=== PATIENT | male | born 1960 | race Caucasian/White ===

== ENCOUNTER 2017-03-17 18:12 | Emergency (ER) | payer SELFPAY ==
[2017-03-17] MEDS ORDERED: NORMAL SALINE 500 ML IV ONE (18:40)
--- NOTE | 2017-03-17 19:15 | ER Document Report ---
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 Patient hospitalization was also complicated by a hospital-acquired pneumonia. The patient spent the last 2 weeks prior to today' s visit in a rehabilitation center. He was just discharged from that center today and at home just prior to arrival apparently had an episode of syncope. The patient himself is unable to provide the details but family witness states that he was sitting in his chair when he appeared to "slumped forward" and then was minimally responsive for approximately 2-3 minutes. He then returned closer to normal. When EMS first arrived to the initial systolic blood pressure was 77. Family and EMS reports that his blood pressure and overall appearance improved after initiation of IV fluids. Family states that they were concerned that he was dehydrated today. At the time of my assessment the patient denies any acute complaints stating only that he feels thirsty. He denies any headache, neck pain, focal weakness or numbness or vomiting. No change in ostomy output. He denies any focal abdominal pain. No chest pain or shortness of breath. Initially there was some concern that the patient was hypoxemic although this appears to have been related to poor placement of the SPO2 reader. Patient denies anything improves or worsens the symptoms. He was encouraged by his primary doctor to come to the emergency department today. He has family are clear that they are hopeful that they can be discharged home today. - Related Data Allergies/Adverse Reactions: No Known Allergies Allergy (Unverified 03/17/17 18:58) Past Medical History - General Information source: Patient, Relative - Social History Smoking Status: Former Smoker Chew tobacco use (# tins/day): No Frequency of alcohol use: None Drug Abuse: None Lives with: Family Family History: Reviewed & Not Pertinent Past Surgical History: Reports: Hx Abdominal Surgery - colostomy Review of Systems - Review of Systems Notes: Constitutional: Negative for fever. HENT: Negative for sore throat. Eyes: Negative for visual changes. Cardiovascular: Negative for chest pain. Respiratory: Negative for shortness of breath. Gastrointestinal: Negative for abdominal pain, vomiting or diarrhea. Genitourinary: Negative for dysuria. Musculoskeletal: Negative for back pain. Skin: Negative for rash. Neurological: Negative for headaches, weakness or numbness. 10 point ROS negative except as marked above and in HPI. Physical Exam - Vital signs Vitals: Temp Pulse Resp BP Pulse Ox 97.8 F 71 14 103/71 98 03/17/17 18:26 03/17/17 18:26 03/17/17 18:26 03/17/17 18:26 03/17/17 18:26 Interpretation: Normal Notes: PHYSICAL EXAMINATION: GENERAL: Appears chronically ill but in no acute distress HEAD: Atraumatic, normocephalic. EYES: Pupils equal round and reactive to light, extraocular movements intact, sclera anicteric, conjunctiva are normal. ENT: nares patent, oropharynx clear without exudates. Moist mucous membranes. NECK: Normal range of motion, supple without lymphadenopathy LUNGS: Breath sounds clear to auscultation bilaterally and equal. No wheezes rales or rhonchi. HEART: Regular rate and rhythm without murmurs ABDOMEN: Soft, nontender, normoactive bowel sounds. No guarding, no rebound. No masses appreciated. Left lower quadrant ostomy present with appropriate stool output EXTREMITIES: Normal range of motion, no pitting or edema. No cyanosis. NEUROLOGICAL: No focal neurological deficits. Moves all extremities spontaneously and on command. PSYCH: Normal mood, normal affect. SKIN: Warm, Dry, normal turgor, no rashes or lesions noted. Course - Re-evaluation Re-evalutation: 03/17/17 19:14 Presentation appears most consistent with syncope in the setting of dehydration. Patient's vitals are normal at the time of my assessment and although he appears chronically ill he is in no acute distress. Family states that his appearance is his baseline at this time. His examination was without any focal findings beyond an ostomy with appropriate stool output and a recent surgical incision on his scalp. No evidence of infection to either surgical site. Patient does also appear clinically dehydrated. His systolic blood pressure, my assessment is 111. Will proceed with basic laboratories, IV fluids , EKG and reassessment. The patient had his supplemental oxygen turned off what was in the room and maintained a pulse oximetry reading of greater than 96 % for over 5 minutes I do not believe the initial hypoxemia readings were accurate as they appear to be related to movement of his finger on the device. 03/17/17 20:27 Patient normotensive, alert, without focal neurologic deficits at this time. He continues to deny syncope was during exertion. No preceding symptoms of palpitations, chest pain, or shortness of breath. Patient is asymptomatic at this time. EKG is without evidence of HCOM, right heart strain, ST changes to suggest ischemia, prolong QTc, delta wave, epsilon wave, or Brugada syndrome. Patient denies any symptoms to suggest an acute PE, FL, TAD, SAH, seizure, or acute GI bleed as the etiology of their syncope today. On exam, no murmurs to suggest critical aortic stenosis as possible etiology. Based on overall clinical history, exam findings, vitals, and patients appearance, I feel it is safe for patient to be discharged home at this time with close outpatient follow -up and strict return precautions. The patient now states he feels much improved , has tolerated oral intake and has remained hemodynamically within normal limits for the past 1.5 hours. His laboratories are unremarkable. I have reviewed at length with the family the importance of immediately return to the emergency department for any new symptoms. The family would like to be discharged home and the patient is in agreement stating he does not wish to be readmitted to the hospital I do not think this is required at this time. At this time will discharge with return precautions and follow-up recommendations. Verbal discharge instructions given a the bedside and opportunity for questions given. Medication warnings reviewed. Patient is in agreement with this plan and has verbalized understanding of return precautions and the need for primary care follow-up in the next 24-72 hours. - Vital Signs Vital signs: Temp Pulse Resp BP Pulse Ox 98.6 F 92 18 108/76 94 03/17/17 20:57 03/17/17 20:57 03/17/17 20:57 03/17/17 20:57 03/17/17 20:57 - Laboratory Result Diagrams: 03/17/17 18:39 03/17/17 18:39 Laboratory results interpreted by me: 03/17/17 18:39 WBC 14.6 H RBC 4.06 L Hgb 12.2 L Hct 37.7 L RDW 14.3 H Lymphocytes % (Manual) 9 L Abs Neuts (Manual) 12.1 H - EKG Interpretation by Me Additional EKG results interpreted by me: 03/17/17 20:[address] elevations or depressions. QTc 429. Discharge - Discharge Clinical Impression: Syncope Qualifiers: Syncope type: unspecified Qualified Code(s): R55 - Syncope and collapse Condition: Good Disposition: HOME, SELF-CARE Additional Instructions: You were seen today after an episode of passing out. Your EKG here is normal. At this time, we do not feel that your episode of passing out was from any life- threatening cause. Please drink plenty of fluids over the next several days. Return to emergency department if you have any further episodes of syncope, headache, weakness, numbness, chest pain, or shortness of breath. Please follow up closely with your primary care physician. Referrals: DESI RIGGS PA-C [Primary Care Provider] - Follow up as needed
[2017-03-17 19:57] LABS: HEMATOCRIT 37.7 % (37.9-51.0); HEMOGLOBIN 12.2 g/dL (13.5-17.0); HGB HCT DIFFERENCE -1.1; MEAN CORPUSCULAR HEMOGLOBIN 30.1 pg (27.0-33.4); MEAN CORPUSCULAR HGB CONC 32.4 g/dL (32.0-36.0); MEAN CORPUSCULAR VOLUME 93 fl (80-97); RED BLOOD COUNT 4.06 10^6/uL (4.35-5.55); RED CELL DISTRIBUTION WIDTH 14.3 % (11.5-14.0); WHITE BLOOD COUNT 14.6 10^3/uL (4.0-10.5)
[2017-03-17 19:59] LABS: ANION GAP 7 (5-19); BLOOD UREA NITROGEN 13 mg/dL (7-20); CALCIUM 8.6 mg/dL (8.4-10.2); CARBON DIOXIDE 28 mmol/L (22-30); CHLORIDE 104 mmol/L (98-107); CREATININE RESULT 0.79 mg/dL (0.52-1.25); GLUCOSE 96 mg/dL (75-110); SODIUM 139.2 mmol/L (137-145)
[2017-03-17 20:23] LABS: BAND NEUTROPHILS % (MANUAL) 5 % (3-5); BASOPHILS % (MANUAL) 0 % (0-2); EOSINOPHILS % (MANUAL) 3 % (0-6); LYMPHOCYTES % (MANUAL) 9 % (13-45); TOTAL CELLS COUNTED 100
[2017-03-17 20:25] LABS: ANISOCYTOSIS SLIGHT; TOXIC GRANULATION SLIGHT
[2017-03-17 20:33] VITALS: BP 108/76
--- NOTE | 2017-03-18 09:12 | EKG REPORT ---
SEVERITY:- NORMAL ECG - SINUS RHYTHM : Confirmed by: Ashley Nascimento MD 18-Mar-2017 09:11:46
== END 2017-03-17 20:57 | disposition home or self-care (01) ==
LOC: ER 18:12
DX: R55 Syncope and collapse (principal); Z87.891 Personal history of nicotine dependence
CPT/HCPCS: 93005; 99284; 36415; 85025; 80048; 93010; J7040

== ENCOUNTER → 2017-10-20 | Outpatient (CLI) | payer MEDICAID, OTHER ==
[2017-10-20 12:41] LABS: ABSOLUTE EOSINOPHILS # (AUTO) 0.3 10^3/uL (0.0-0.6); ABSOLUTE MONOCYTES (AUTO) 0.7 10^3/uL (0.1-1.4); ABSOLUTE NEUT (AUTO) 4.7 10^3/uL (1.7-8.2); BASOPHILS % (AUTO) 0.6 % (0-2); EOSINOPHILS % (AUTO) 4.5 % (0-6); HEMATOCRIT 43.9 % (37.9-51.0); HEMOGLOBIN 15.3 g/dL (13.5-17.0); LYMPHOCYTES % (AUTO) 14.4 % (13-45); MEAN CORPUSCULAR HEMOGLOBIN 33.4 pg (27.0-33.4); MEAN CORPUSCULAR HGB CONC 34.9 g/dL (32.0-36.0); MEAN CORPUSCULAR VOLUME 96 fl (80-97); MONOCYTES % (AUTO) 10.7 % (3-13); PLATELET COUNT 112 10^3/uL (150-450); RED BLOOD COUNT 4.59 10^6/uL (4.35-5.55); RED CELL DISTRIBUTION WIDTH 15.6 % (11.5-14.0); SEGMENTED NEUTROPHILS % (AUTO) 69.8 % (42-78); TOTAL CELLS COUNTED % (AUTO) 100 %; WHITE BLOOD COUNT 6.8 10^3/uL (4.0-10.5)
[2017-10-20 13:00] LABS: ALANINE AMINOTRANSFERASE 27 U/L (21-72); ALBUMIN 4.4 g/dL (3.5-5.0); ALKALINE PHOSPHATASE 52 U/L (38-126); ANION GAP 13 (5-19); ASPARTATE AMINO TRANSFERASE 18 U/L (17-59); BILIRUBIN,DIRECT 0.1 mg/dL (0.0-0.4); BILIRUBIN,TOTAL 0.5 mg/dL (0.2-1.3); BLOOD UREA NITROGEN 14 mg/dL (7-20); CALCIUM 10.1 mg/dL (8.4-10.2); CARBON DIOXIDE 28 mmol/L (22-30); CHLORIDE 107 mmol/L (98-107); GLUCOSE 88 mg/dL (75-110); POTASSIUM 4.2 mmol/L (3.6-5.0); SODIUM 147.5 mmol/L (137-145); TOTAL PROTEIN 7.3 g/dL (6.3-8.2)
== END ==
LOC: LAB 12:14
PROVIDERS: ATTEND Internal Medicine Hematology & Oncology
DX: C71.9 Malignant neoplasm of brain, unspecified (principal)
CPT/HCPCS: 36415; 80053; 85025

== ENCOUNTER → 2017-11-24 | Outpatient (CLI) | payer MEDICAID, OTHER ==
[2017-11-24 10:03] LABS: ABSOLUTE EOSINOPHILS # (AUTO) 0.1 10^3/uL (0.0-0.6); ABSOLUTE MONOCYTES (AUTO) 0.6 10^3/uL (0.1-1.4); BASOPHILS % (AUTO) 0.8 % (0-2); EOSINOPHILS % (AUTO) 3.1 % (0-6); HEMATOCRIT 41.7 % (37.9-51.0); HEMOGLOBIN 14.4 g/dL (13.5-17.0); LYMPHOCYTES % (AUTO) 21.3 % (13-45); MEAN CORPUSCULAR HEMOGLOBIN 34.3 pg (27.0-33.4); MEAN CORPUSCULAR HGB CONC 34.6 g/dL (32.0-36.0); MEAN CORPUSCULAR VOLUME 99 fl (80-97); MONOCYTES % (AUTO) 12.9 % (3-13); PLATELET COUNT 139 10^3/uL (150-450); RED BLOOD COUNT 4.21 10^6/uL (4.35-5.55); RED CELL DISTRIBUTION WIDTH 15.6 % (11.5-14.0); SEGMENTED NEUTROPHILS % (AUTO) 61.9 % (42-78); TOTAL CELLS COUNTED % (AUTO) 100 %; WHITE BLOOD COUNT 4.9 10^3/uL (4.0-10.5)
[2017-11-24 10:20] LABS: ALANINE AMINOTRANSFERASE 22 U/L (21-72); ALBUMIN 4.6 g/dL (3.5-5.0); ALKALINE PHOSPHATASE 46 U/L (38-126); ANION GAP 12 (5-19); ASPARTATE AMINO TRANSFERASE 20 U/L (17-59); BILIRUBIN,TOTAL 0.4 mg/dL (0.2-1.3); BLOOD UREA NITROGEN 15 mg/dL (7-20); CALCIUM 9.6 mg/dL (8.4-10.2); CARBON DIOXIDE 28 mmol/L (22-30); CHLORIDE 108 mmol/L (98-107); GLUCOSE 89 mg/dL (75-110); POTASSIUM 3.9 mmol/L (3.6-5.0); SODIUM 147.5 mmol/L (137-145); TOTAL PROTEIN 7.2 g/dL (6.3-8.2)
== END ==
LOC: LAB 09:40
PROVIDERS: ATTEND Internal Medicine Hematology & Oncology
DX: C71.9 Malignant neoplasm of brain, unspecified (principal)
CPT/HCPCS: 36415; 80053; 85025

== ENCOUNTER → 2017-12-16 | Outpatient (CLI) | payer MEDICAID, OTHER ==
[2017-12-16 11:18] LABS: ABSOLUTE EOSINOPHILS # (AUTO) 0.3 10^3/uL (0.0-0.6); ABSOLUTE LYMPHOCYTES (AUTO) 0.8 10^3/uL (0.5-4.7); ABSOLUTE MONOCYTES (AUTO) 0.6 10^3/uL (0.1-1.4); ABSOLUTE NEUT (AUTO) 3.7 10^3/uL (1.7-8.2); BASOPHILS % (AUTO) 0.8 % (0-2); EOSINOPHILS % (AUTO) 5.6 % (0-6); HEMATOCRIT 40.2 % (37.9-51.0); HEMOGLOBIN 13.7 g/dL (13.5-17.0); LYMPHOCYTES % (AUTO) 15.3 % (13-45); MEAN CORPUSCULAR HEMOGLOBIN 34.4 pg (27.0-33.4); MEAN CORPUSCULAR HGB CONC 34.1 g/dL (32.0-36.0); MEAN CORPUSCULAR VOLUME 101 fl (80-97); MONOCYTES % (AUTO) 10.6 % (3-13); PLATELET COUNT 198 10^3/uL (150-450); RED BLOOD COUNT 3.99 10^6/uL (4.35-5.55); RED CELL DISTRIBUTION WIDTH 15.4 % (11.5-14.0); SEGMENTED NEUTROPHILS % (AUTO) 67.7 % (42-78); TOTAL CELLS COUNTED % (AUTO) 100 %; WHITE BLOOD COUNT 5.4 10^3/uL (4.0-10.5)
[2017-12-16 11:39] LABS: ALANINE AMINOTRANSFERASE 38 U/L (21-72); ALBUMIN 4.1 g/dL (3.5-5.0); ALKALINE PHOSPHATASE 51 U/L (38-126); ANION GAP 10 (5-19); ASPARTATE AMINO TRANSFERASE 21 U/L (17-59); BILIRUBIN,DIRECT 0.1 mg/dL (0.0-0.4); BILIRUBIN,TOTAL 0.4 mg/dL (0.2-1.3); BLOOD UREA NITROGEN 15 mg/dL (7-20); CALCIUM 9.6 mg/dL (8.4-10.2); CARBON DIOXIDE 30 mmol/L (22-30); CHLORIDE 104 mmol/L (98-107); GLUCOSE 107 mg/dL (75-110); POTASSIUM 4.5 mmol/L (3.6-5.0); SODIUM 144.3 mmol/L (137-145); TOTAL PROTEIN 6.5 g/dL (6.3-8.2)
== END ==
LOC: LAB 11:01
PROVIDERS: ATTEND Internal Medicine Hematology & Oncology
DX: C71.9 Malignant neoplasm of brain, unspecified (principal)
CPT/HCPCS: 36415; 80053; 85025

== ENCOUNTER → 2018-05-10 | Outpatient (CLI) | payer MEDICAID ==
[2018-05-10 12:12] LABS: ABSOLUTE BASOPHILS # (AUTO) 0.1 10^3/uL (0.0-0.2); ABSOLUTE EOSINOPHILS # (AUTO) 0.4 10^3/uL (0.0-0.6); ABSOLUTE LYMPHOCYTES (AUTO) 0.9 10^3/uL (0.5-4.7); ABSOLUTE MONOCYTES (AUTO) 0.6 10^3/uL (0.1-1.4); ABSOLUTE NEUT (AUTO) 4.3 10^3/uL (1.7-8.2); BASOPHILS % (AUTO) 0.9 % (0-2); EOSINOPHILS % (AUTO) 6.9 % (0-6); HEMATOCRIT 42.4 % (37.9-51.0); HEMOGLOBIN 14.6 g/dL (13.5-17.0); LYMPHOCYTES % (AUTO) 14.9 % (13-45); MEAN CORPUSCULAR HEMOGLOBIN 32.7 pg (27.0-33.4); MEAN CORPUSCULAR HGB CONC 34.4 g/dL (32.0-36.0); MEAN CORPUSCULAR VOLUME 95 fl (80-97); PLATELET COUNT 199 10^3/uL (150-450); RED BLOOD COUNT 4.45 10^6/uL (4.35-5.55); RED CELL DISTRIBUTION WIDTH 13.8 % (11.5-14.0); SEGMENTED NEUTROPHILS % (AUTO) 68.3 % (42-78); TOTAL CELLS COUNTED % (AUTO) 100 %; WHITE BLOOD COUNT 6.3 10^3/uL (4.0-10.5)
[2018-05-10 12:30] LABS: ALANINE AMINOTRANSFERASE 30 U/L (21-72); ALBUMIN 4.2 g/dL (3.5-5.0); ALKALINE PHOSPHATASE 41 U/L (38-126); ANION GAP 9 (5-19); ASPARTATE AMINO TRANSFERASE 15 U/L (17-59); BILIRUBIN,DIRECT 0.2 mg/dL (0.0-0.4); BILIRUBIN,TOTAL 0.8 mg/dL (0.2-1.3); BLOOD UREA NITROGEN 14 mg/dL (7-20); CALCIUM 9.3 mg/dL (8.4-10.2); CARBON DIOXIDE 31 mmol/L (22-30); CHLORIDE 107 mmol/L (98-107); GLUCOSE 71 mg/dL (75-110); POTASSIUM 3.9 mmol/L (3.6-5.0); SODIUM 147.2 mmol/L (137-145); TOTAL PROTEIN 7.3 g/dL (6.3-8.2)
== END ==
LOC: LAB 11:49
PROVIDERS: ATTEND Internal Medicine Hematology & Oncology
DX: C71.9 Malignant neoplasm of brain, unspecified (principal)
CPT/HCPCS: 36415; 80053; 85025

== ENCOUNTER → 2018-05-17 | Outpatient (CLI) | payer MEDICAID ==
[2018-05-17 12:42] LABS: ABSOLUTE EOSINOPHILS # (AUTO) 0.4 10^3/uL (0.0-0.6); ABSOLUTE MONOCYTES (AUTO) 0.5 10^3/uL (0.1-1.4); ABSOLUTE NEUT (AUTO) 3.7 10^3/uL (1.7-8.2); BASOPHILS % (AUTO) 0.8 % (0-2); EOSINOPHILS % (AUTO) 6.9 % (0-6); HEMATOCRIT 41.7 % (37.9-51.0); HEMOGLOBIN 14.6 g/dL (13.5-17.0); LYMPHOCYTES % (AUTO) 17.9 % (13-45); MEAN CORPUSCULAR HEMOGLOBIN 32.8 pg (27.0-33.4); MEAN CORPUSCULAR HGB CONC 34.9 g/dL (32.0-36.0); MEAN CORPUSCULAR VOLUME 94 fl (80-97); MONOCYTES % (AUTO) 8.5 % (3-13); PLATELET COUNT 163 10^3/uL (150-450); RED BLOOD COUNT 4.44 10^6/uL (4.35-5.55); RED CELL DISTRIBUTION WIDTH 14.2 % (11.5-14.0); SEGMENTED NEUTROPHILS % (AUTO) 65.9 % (42-78); TOTAL CELLS COUNTED % (AUTO) 100 %; WHITE BLOOD COUNT 5.5 10^3/uL (4.0-10.5)
[2018-05-17 13:06] LABS: ALANINE AMINOTRANSFERASE 23 U/L (21-72); ALBUMIN 4.2 g/dL (3.5-5.0); ALKALINE PHOSPHATASE 38 U/L (38-126); ANION GAP 14 (5-19); ASPARTATE AMINO TRANSFERASE 17 U/L (17-59); BILIRUBIN,DIRECT 0.2 mg/dL (0.0-0.4); BILIRUBIN,TOTAL 0.5 mg/dL (0.2-1.3); BLOOD UREA NITROGEN 14 mg/dL (7-20); CALCIUM 9.2 mg/dL (8.4-10.2); CARBON DIOXIDE 24 mmol/L (22-30); CHLORIDE 107 mmol/L (98-107); GLUCOSE 101 mg/dL (75-110); POTASSIUM 4.1 mmol/L (3.6-5.0); SODIUM 144.7 mmol/L (137-145); TOTAL PROTEIN 7.2 g/dL (6.3-8.2)
== END ==
LOC: LAB 12:22
PROVIDERS: ATTEND Internal Medicine Hematology & Oncology
DX: C71.9 Malignant neoplasm of brain, unspecified (principal)
CPT/HCPCS: 36415; 80053; 85025

== ENCOUNTER 2018-06-01 21:53 | Observation (INO) | payer MEDICAID ==
[2018-06-01] MEDS ORDERED: NORMAL SALINE 1000 ML 1,000 ML IV ONE (22:25)
--- NOTE | 2018-06-01 22:34 | ER Document Report ---
ED Syncope and Near Syncope - General Chief Complaint: Syncope Stated Complaint: FAINTING Time Seen by Provider: 06/01/18 22:16 Mode of Arrival: Stretcher Information source: Patient, Relative TRAVEL OUTSIDE OF THE [place] IN LAST 30 DAYS: No - HPI Patient complains to provider of: Fainting Episode witnessed (by whom): Yes Single episoded occurred: Home Symptoms prior to episode: Dizziness, Lightheaded Quality of pain: No pain Severity: None Pain Level: Denies Context: Became unresponsive, Collapsed Injury location: None Current symptoms: None/feels back to normal Similar symptoms previously: No Recently seen / treated by doctor: Yes - Related Data Allergies/Adverse Reactions: No Known Allergies Allergy (Unverified 03/17/17 18:58) Past Medical History - Social History Smoking Status: Unknown if Ever Smoked Family History: Reviewed & Not Pertinent Past Surgical History: Reports: Hx Abdominal Surgery - colostomy Review of Systems - Review of Systems Constitutional: denies: Chills, Fever EENT: No symptoms reported Cardiovascular: No symptoms reported Respiratory: No symptoms reported Gastrointestinal: No symptoms reported Genitourinary: No symptoms reported Male Genitourinary: No symptoms reported Musculoskeletal: No symptoms reported Skin: No symptoms reported Hematologic/Lymphatic: No symptoms reported Neurological/Psychological: Weakness -: Yes All other systems reviewed and negative Physical Exam - Vital signs Vitals: BP Pulse Ox 90/65 L 95 06/01/18 22:02 06/01/18 22:02 - General General appearance: Appears well, Alert In distress: None - HEENT Head: Normocephalic, Atraumatic Eyes: Normal Pupils: PERRL - Respiratory Respiratory status: No respiratory distress Chest status: Nontender Breath sounds: Normal Chest palpation: Normal - Cardiovascular Rhythm: Regular Heart sounds: Normal auscultation Murmur: No - Abdominal Inspection: Normal Distension: No distension Bowel sounds: Normal Tenderness: Nontender Organomegaly: No organomegaly - Back Back: Normal, Nontender - Extremities General upper extremity: Normal inspection, Nontender, Normal color, Normal ROM , Normal temperature General lower extremity: Normal inspection, Nontender, Normal color, Normal ROM , Normal temperature, Normal weight bearing. No: Selene's sign - Neurological Neuro grossly intact: Yes Cognition: Normal Orientation: AAOx4 [place] Coma Scale Eye Opening: Spontaneous [place] Coma Scale Verbal: Oriented [place] Coma Scale Motor: Obeys Commands Kasie Coma Scale Total: 15 Speech: Normal Motor strength normal: LUE, RUE, LLE, RLE Sensory: Normal - Psychological Associated symptoms: Normal affect, Normal mood - Skin Skin Temperature: Warm Skin Moisture: Dry Skin Color: Normal Course - Re-evaluation Re-evalutation: 06/02/18 12:57 I discussed patient care with the hospitalist regional production manager Dr Joe. He will admit patient for further ealuation and management. - Vital Signs Vital signs: Temp Pulse Resp BP Pulse Ox 98.1 F 74 16 100/66 95 06/01/18 22:12 06/01/18 22:12 06/02/18 07:01 06/02/18 07:00 06/02/18 07:01 - Laboratory Result Diagrams: 06/01/18 22:56 06/01/18 22:56 Laboratory results interpreted by me: 06/01/18 06/01/18 22:56 22:56 RBC 3.88 L Hgb 12.9 L Hct 37.0 L RDW 14.7 H Seg Neutrophils % 81.0 H Lymphocytes % 8.1 L Est GFR (Non-Af Amer) 59 L Glucose 119 H Creatine Kinase 51 L - Diagnostic Test Radiology reviewed: Image reviewed, Reports reviewed - EKG Interpretation by Me EKG shows normal: Sinus rhythm Rate: Normal - 71 Rhythm: NSR When compared to previous EKG there are: No significant change Additional EKG results interpreted by me: 06/01/18 22:33 No STEMI. - Transfer of Care Notes: 06/02/18 12:59 Syncope. Orthostatic Hypotension. H/O GBM of brain. Discharge - Discharge Clinical Impression: Syncope and collapse, Glioblastoma multiforme of brain Hypotension Qualifiers: Hypotension type: unspecified hypotension type Qualified Code(s): I95.9 - Hypotension, unspecified Condition: Fair Disposition: ADMITTED INPATIENT Admitting Provider: Dr Joe Unit Admitted: ICU
[2018-06-01 23:04] LABS: ABSOLUTE BASOPHILS # (AUTO) 0.1 10^3/uL (0.0-0.2); ABSOLUTE EOSINOPHILS # (AUTO) 0.1 10^3/uL (0.0-0.6); ABSOLUTE LYMPHOCYTES (AUTO) 0.7 10^3/uL (0.5-4.7); ABSOLUTE MONOCYTES (AUTO) 0.8 10^3/uL (0.1-1.4); ABSOLUTE NEUT (AUTO) 7.3 10^3/uL (1.7-8.2); BASOPHILS % (AUTO) 0.7 % (0-2); EOSINOPHILS % (AUTO) 1.6 % (0-6); HEMOGLOBIN 12.9 g/dL (13.5-17.0); LYMPHOCYTES % (AUTO) 8.1 % (13-45); MEAN CORPUSCULAR HEMOGLOBIN 33.2 pg (27.0-33.4); MEAN CORPUSCULAR HGB CONC 34.7 g/dL (32.0-36.0); MEAN CORPUSCULAR VOLUME 96 fl (80-97); MONOCYTES % (AUTO) 8.6 % (3-13); PLATELET COUNT 219 10^3/uL (150-450); RED BLOOD COUNT 3.88 10^6/uL (4.35-5.55); RED CELL DISTRIBUTION WIDTH 14.7 % (11.5-14.0); TOTAL CELLS COUNTED % (AUTO) 100 %
[2018-06-01 23:11] LABS: INTERNATIONAL RATION (INR) 0.95; PROTHROMBIN TIME 13.2 SEC (11.4-15.4)
[2018-06-01 23:12] LABS: PARTIAL THROMBOPLASTIN TIME 25.7 SEC (23.5-35.8)
[2018-06-01 23:17] LABS: ALANINE AMINOTRANSFERASE 35 U/L (21-72); ALBUMIN 3.7 g/dL (3.5-5.0); ALKALINE PHOSPHATASE 47 U/L (38-126); ANION GAP 11 (5-19); ASPARTATE AMINO TRANSFERASE 18 U/L (17-59); BILIRUBIN,DIRECT 0.2 mg/dL (0.0-0.4); BILIRUBIN,TOTAL 0.4 mg/dL (0.2-1.3); BLOOD UREA NITROGEN 15 mg/dL (7-20); CALCIUM 8.7 mg/dL (8.4-10.2); CARBON DIOXIDE 26 mmol/L (22-30); CHLORIDE 102 mmol/L (98-107); CREATINE KINASE 51 U/L (55-170); GLUCOSE 119 mg/dL (75-110); POTASSIUM 4.1 mmol/L (3.6-5.0); SODIUM 139.1 mmol/L (137-145); TOTAL PROTEIN 6.5 g/dL (6.3-8.2)
[2018-06-01 23:29] LABS: CREATINE KINASE MB 0.53 ng/mL (<4.55); NT PRO BNP 70 pg/mL (5-900)
[2018-06-01 23:35] LABS: TROPONIN I < 0.012 ng/mL
--- NOTE | 2018-06-01 23:48 | RADIOLOGY REPORT (SQ) ---
EXAM DESCRIPTION: CT HEAD WITHOUT IV CONTRAST COMPLETED DATE/TME: 06/01/2018 22:24 CLINICAL HISTORY: 57 years, Male, Syncope COMPARISON: None. TECHNIQUE: 195 Images stored on PACS. All CT scanners at this facility use dose modulation, iterative reconstruction, and/or weight based dosing when appropriate to reduce radiation dose to as low as reasonably achievable (ALARA). [facility]: Dose Right [facility]: CareDose [facility]: Dose Right [facility]: Teradose 4D [facility]: [employer] LIMITATIONS: None. FINDINGS: Previous craniotomy changes over the right frontal region. 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 There is extensive vasogenic edema in the medial right temporal lobe, basal ganglia internal and external capsule and jones radiata and the right frontal lobe with some sulcal effacement, impingement on the lateral ventricles and third ventricle. There appears to be a mass which is somewhat ill-defined in the region of the right basal ganglia. Recommend contrast-enhanced exam or MRI for further evaluation. IMPRESSION: Findings suspicious for recurrent or residual mass in the region of the right basal ganglia with surrounding vasogenic edema resulting in mild sulcal and ventricular effacement. 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
--- NOTE | 2018-06-02 00:32 | RADIOLOGY REPORT (SQ) ---
EXAM DESCRIPTION: X-ray single view chest CLINICAL HISTORY: 57 years Male, Syncope COMPARISON: None. TECHNIQUE: Single portable view of the chest FINDINGS: The lungs are well-expanded. There is minimal parenchymal opacification in the left inferior hemithorax which may reflect fibrosis and/or atelectasis. There is no evidence of a pneumothorax. The cardiac silhouette is normal in size and configuration. The mediastinal contours are normal. No acute osseous abnormality is identified. There are mild degenerative changes of the shoulders and spine. No focal soft tissue abnormalities are seen. There are multiple overlying conveyor monitor leads. IMPRESSION: No evidence of acute intrathoracic disease. Probable minimal fibrosis and/or atelectasis in the left lung base.
[2018-06-02] MEDS ORDERED: NORMAL SALINE 1000 ML 1,000 ML IV ONE (00:36)
[2018-06-02] MEDS ORDERED: OXYCODONE-ACETAMINOPHEN 5-325 MG TABLET PO PRN (00:41)
--- NOTE | 2018-06-02 02:47 | RADIOLOGY REPORT (SQ) ---
CLINICAL DATA: 57-year-old male status post syncopal episode. TECHNICAL DATA: Following dynamic intravenous nonionic contrast infusion, multiple axial helical CT images with multiplanar reconstructions were obtained through the head and neck. MIP images were also obtained. The CT study is performed according to ALARA (as low as reasonably achievable) or ALARA/IMAGE GENTLY, with automatic adjustment of mA and/or kV according to patient size. COMPARISONS: Head CT performed earlier the same day. No additional comparisons were available. FINDINGS: CTA NECK: AORTA: The aortic arch is well imaged and demonstrates conventional branching. The origins of the left subclavian artery, left common carotid artery and innominate artery are patent. VERTEBRAL ARTERIES: The LEFT vertebral artery is normal in caliber and contour without evidence of dissection or significant stenosis. The RIGHT vertebral artery is normal in caliber and contour without evidence of dissection or significant stenosis. CAROTID ARTERIES: The LEFT common carotid artery is unremarkable. There is no evidence of stenosis, dissection or occlusion The carotid bulb reveals mild atherosclerotic calcification. The LEFT internal carotid artery is normal in caliber and contour without evidence of significant stenosis, dissection or occlusion. The LEFT external carotid artery is unremarkable. The RIGHT common carotid artery is unremarkable. There is no evidence of stenosis, dissection or occlusion. The carotid bulb reveals mild atherosclerotic calcification. T the RIGHT internal carotid artery is unremarkable. There is no evidence of stenosis, dissection or occlusion. The RIGHT external carotid artery is unremarkable. CTA HEAD: LEFT: INTERNAL CAROTID ARTERY: The distal internal carotid artery is unremarkable. There are atherosclerotic calcifications along the cavernous left internal carotid artery. ANTERIOR CEREBRAL ARTERY:The A1 segment is normal in caliber and contour. The A2 segment is normal in caliber and contour. The region of the anterior communicating artery is unremarkable. MIDDLE CEREBRAL ARTERY: The M1 segment is normal in caliber and contour. The M2 branches normal in caliber and contour. POSTERIOR CEREBRAL ARTERY:The P1 segment is normal in caliber and contour. The P2 segment is normal in caliber and contour. The left posterior communicating artery is hypoplastic. VERTEBRAL ARTERY: The intradural left vertebral artery is normal in caliber and contour. RIGHT: INTERNAL CAROTID ARTERY: The distal internal carotid artery is unremarkable. There are atherosclerotic calcifications along the cavernous right internal carotid artery. ANTERIOR CEREBRAL ARTERY: The A1 segment is normal in caliber and contour. The A2 segment is normal in caliber and contour. MIDDLE CEREBRAL ARTERY:The M1 segment is normal in caliber and contour. The M2 branches normal in caliber and contour. There is attenuation of the middle cerebral artery branches over the right cerebral convexity likely due to underlying cerebral edema. POSTERIOR CEREBRAL ARTERY: The P1 segment is normal in caliber and contour. The P2 segment is normal in caliber and contour. The right posterior communicating artery is hypoplastic VERTEBRAL ARTERY: The intradural right vertebral artery is normal in caliber and contour. BASILAR ARTERY: The basilar artery is normal in caliber and contour. DURAL VENOUS SINUSES: The dural venous sinuses are patent. NON-ANGIOGRAPHIC FINDINGS: There are remote postsurgical changes of the brain consistent with a right frontal craniotomy. There is underlying cystic encephalomalacia and there is decreased attenuation within the deep hemispheric white matter of the right frontal lobe with associated sulcal effacement consistent with edema. There is no pathologic enhancement within the region of the right basal ganglia or within the right cerebral hemisphere. No discrete mass lesion is identified. IMPRESSION: 1. Normal CTA of the neck. There are minimal atherosclerotic calcifications along the carotid bulbs bilaterally without significant stenosis. 2. Normal intracranial CTA. 3. Remote right frontal craniotomy with underlying encephalomalacia and findings suggestive of right frontal lobe vasogenic edema with attenuation of the right middle cerebral arteries over the right cerebral convexity. No enhancing mass lesion is identified within the right basal ganglia or right cerebral hemisphere. There is no evidence of stenosis as per the NASCET criteria.
[2018-06-02] MEDS: NORMAL SALINE 1000 ML 1,000 ML IV PRN ×2 (05:49→17:23)
--- NOTE | 2018-06-02 07:54 | PDOC H&P ---
History of Present Illness Admission Date/PCP: 06/02/18 00:38 GALA SPRING MD Patient complains of: Syncope History of Present Illness: KATI DESAI is a 57 year old male with known past medical history of brain tumor presents to the emergency department after passing out at home. States he was seated, denies chest pain, denies headache, blurred vision or shortness of breath. States this has never happened before. Patient was diagnosed with glioblastoma multiforme a which she was told is crawling. Follows with Dr. Troncoso. The patient is alert and oriented 3, appears to be tired but in no acute distress. Past Medical History Neurological Medical History: Reports: Other - Brain tumor Past Surgical History Past Surgical History: Reports: Other - Tumor resection Social History Information Source: Patient Lives with: Family Smoking Status: Unknown if Ever Smoked Hx Recreational Drug Use: No Drugs: None Family History Family History: None, Reviewed & Not Pertinent Parental Family History Reviewed: Yes Children Family History Reviewed: Yes Sibling(s) Family History Reviewed.: Yes Medication/Allergy Allergies/Adverse Reactions: No Known Allergies Allergy (Unverified 03/17/17 18:58) Review of Systems Constitutional: ABSENT: chills, fever(s), headache(s), weight gain, weight loss Eyes: ABSENT: visual disturbances Ears: ABSENT: hearing changes Nose, Mouth, and Throat: PRESENT: headache(s) Cardiovascular: ABSENT: chest pain, dyspnea on exertion, edema, orthropnea, palpitations Respiratory: ABSENT: cough, hemoptysis Gastrointestinal: ABSENT: abdominal pain, constipation, diarrhea, hematemesis, hematochezia, nausea, vomiting Genitourinary: ABSENT: dysuria, hematuria Musculoskeletal: ABSENT: joint swelling Integumentary: ABSENT: rash, wounds Neurological: PRESENT: syncope. ABSENT: abnormal gait, abnormal speech, confusion, dizziness, focal weakness Psychiatric: ABSENT: anxiety, depression, homidical ideation, suicidal ideation Endocrine: ABSENT: cold intolerance, heat intolerance, polydipsia, polyuria Hematologic/Lymphatic: ABSENT: easy bleeding, easy bruising Physical Exam Vital Signs: Temp Pulse Resp BP Pulse Ox 98.1 F 74 16 100/66 95 06/01/18 22:12 06/01/18 22:12 06/02/18 07:01 06/02/18 07:00 06/02/18 07:01 Intake & Output 06/01/18 06/02/18 06/03/18 06:59 06:59 06:59 Intake Total 1000 Balance 1000 General appearance: PRESENT: no acute distress, well-developed, well-nourished Head exam: PRESENT: atraumatic, normocephalic Eye exam: PRESENT: conjunctiva pink, EOMI, PERRLA. ABSENT: scleral icterus Ear exam: PRESENT: normal external ear exam Mouth exam: PRESENT: moist, tongue midline Neck exam: ABSENT: carotid bruit, JVD, lymphadenopathy, thyromegaly Respiratory exam: PRESENT: clear to auscultation dickson. ABSENT: rales, rhonchi, wheezes Cardiovascular exam: PRESENT: RRR. ABSENT: diastolic murmur, rubs, systolic murmur Pulses: PRESENT: normal dorsalis pedis pul Vascular exam: PRESENT: normal capillary refill GI/Abdominal exam: PRESENT: normal bowel sounds, soft. ABSENT: distended, guarding, mass, organolmegaly, rebound, tenderness Rectal exam: PRESENT: deferred Extremities exam: PRESENT: full ROM. ABSENT: calf tenderness, clubbing, pedal edema Neurological exam: PRESENT: alert, awake, oriented to person, oriented to place , oriented to time, oriented to situation, CN II-XII grossly intact. ABSENT: motor sensory deficit Psychiatric exam: PRESENT: appropriate affect, depressed, normal mood. ABSENT: homicidal ideation, suicidal ideation Skin exam: PRESENT: dry, intact, warm. ABSENT: cyanosis, rash Results Laboratory Results: 06/02/18 04:50 Troponin I < 0.012 Impressions: Chest X-Ray 06/01/18 22:24 IMPRESSION: No evidence of acute intrathoracic disease. Probable minimal fibrosis and/or atelectasis in the left lung base. Head CT 06/01/18 22:24 IMPRESSION: Findings suspicious for recurrent or residual mass in the region of the right basal ganglia with surrounding vasogenic edema resulting in mild sulcal and ventricular effacement. 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 Normal CTA of the neck. There are minimal atherosclerotic calcifications along the carotid bulbs bilaterally without significant stenosis. 2. Normal intracranial CTA. 3. Remote right frontal craniotomy with underlying encephalomalacia and findings suggestive of right frontal lobe vasogenic edema with attenuation of the right middle cerebral arteries over the right cerebral convexity. No enhancing mass lesion is identified within the right basal ganglia or right cerebral hemisphere. There is no evidence of stenosis as per the NASCET criteria. Chest/Abdomen CTA 06/02/18 00:33 IMPRESSION: 1. Normal CTA of the neck. There are minimal atherosclerotic calcifications along the carotid bulbs bilaterally without significant stenosis. 2. Normal intracranial CTA. 3. Remote right frontal craniotomy with underlying encephalomalacia and findings suggestive of right frontal lobe vasogenic edema with attenuation of the right middle cerebral arteries over the right cerebral convexity. No enhancing mass lesion is identified within the right basal ganglia or right cerebral hemisphere. There is no evidence of stenosis as per the NASCET criteria. Head CTA 06/02/18 00:33 IMPRESSION: 1. Normal CTA of the neck. There are minimal atherosclerotic calcifications along the carotid bulbs bilaterally without significant stenosis. 2. Normal intracranial CTA. 3. Remote right frontal craniotomy with underlying encephalomalacia and findings suggestive of right frontal lobe vasogenic edema with attenuation of the right middle cerebral arteries over the right cerebral convexity. No enhancing mass lesion is identified within the right basal ganglia or right cerebral hemisphere. There is no evidence of stenosis as per the NASCET criteria. Assessment & Plan - Diagnosis (1) Glioblastoma multiforme of brain Is this a current diagnosis for this admission?: Yes (2) Syncope and collapse Is this a current diagnosis for this admission?: Yes Plan: Patient to be admitted to telemetry for further monitoring. MRI brain pending this AM. Will also consult oncology for further workup and evaluation. Patient AO x3. Follows with Oncologist Dr. troncoso. Patient is a DNR/DNI. No family present at bedside. No focal deficits noted at this time. Will continue patients home medications and monitor closely. - Time Time Spent: 30 to 50 Minutes Medications reviewed and adjusted accordingly: Yes Anticipated discharge: Home
--- NOTE | 2018-06-02 08:41 | EKG REPORT ---
SEVERITY:- NORMAL ECG - SINUS RHYTHM : Confirmed by: Amira Plata 02-Jun-2018 08:40:45
[2018-06-02] MEDS: ENOXAPARIN SODIUM INJ 40 MG/0.4 ML DISP.SYRIN SUBCUT SCH (10:53)
[2018-06-02] MEDS ORDERED: LORAZEPAM 1 MG TABLET PO PRN (11:53)
[2018-06-03 08:15] LABS: HEMATOCRIT 39.6 % (37.9-51.0); MEAN CORPUSCULAR HEMOGLOBIN 32.9 pg (27.0-33.4); MEAN CORPUSCULAR HGB CONC 35.3 g/dL (32.0-36.0); MEAN CORPUSCULAR VOLUME 93 fl (80-97); PLATELET COUNT 219 10^3/uL (150-450); RED BLOOD COUNT 4.24 10^6/uL (4.35-5.55); RED CELL DISTRIBUTION WIDTH 14.1 % (11.5-14.0); WHITE BLOOD COUNT 8.5 10^3/uL (4.0-10.5)
[2018-06-03 09:13] LABS: ANION GAP 11 (5-19); BLOOD UREA NITROGEN 11 mg/dL (7-20); CALCIUM 9.1 mg/dL (8.4-10.2); CARBON DIOXIDE 25 mmol/L (22-30); CHLORIDE 109 mmol/L (98-107); GLUCOSE 98 mg/dL (75-110); POTASSIUM 4.2 mmol/L (3.6-5.0); SODIUM 145.3 mmol/L (137-145)
[2018-06-03] MEDS: ENOXAPARIN SODIUM INJ 40 MG/0.4 ML DISP.SYRIN SUBCUT SCH (10:49)
[2018-06-03 13:41] VITALS: BP 106/66
--- NOTE | 2018-06-03 13:48 | RADIOLOGY REPORT (SQ) ---
EXAM DESCRIPTION: VENOUS BILATERAL LOWER COMPLETED DATE/TIME: 06/03/2018 1:40 pm REASON FOR STUDY: Leg swelling COMPARISON: None. TECHNIQUE: Dynamic and static manning scale and color images acquired of both lower extremity venous sy stems. Selected spectral images acquired with additional compression and augmentation maneuvers. Imag es stored on PACS. LIMITATIONS: None. FINDINGS: RIGHT LEG COMMON FEMORAL AND FEMORAL: Normal phasicity, compression and augmentation. No visualized echogenic m aterial on manning scale. No defects on color images. POPLITEAL: Normal compression and augmentation. No visualized echogenic material on manning scale. No de fects on color images. CALF VESSELS: Normal compression and augmentation. No visualized echogenic material on manning scale. No defects on color image. GSV AND SSV: Normal compression. No visualized echogenic material on manning scale. No defects on color images. ANY DEEP VENOUS INSUFFICIENCY: Not evaluated. ANY EVIDENCE OF POPLITEAL CYST: No. OTHER: No other significant finding. LEFT LEG COMMON FEMORAL AND FEMORAL: Normal phasicity, compression and augmentation. No visualized echogenic m aterial on manning scale. No defects on color images. POPLITEAL: Normal compression and augmentation. No visualized echogenic material on manning scale. No de fects on color images. CALF VESSELS: Normal compression and augmentation. No visualized echogenic material on manning scale. No defects on color images. GSV AND SSV: Normal compression. No visualized echogenic material on manning scale. No defects on color images. ANY DEEP VENOUS INSUFFICIENCY: Not evaluated. ANY EVIDENCE POPLITEAL CYST: No. OTHER: No other significant finding. IMPRESSION: NO EVIDENCE DVT OR SVT IN EITHER LEG. TECHNICAL DOCUMENTATION: JOB ID: [id number] [employer]- All Rights Reserved Reading location - IP/workstation name: [email or web address]
--- NOTE | 2018-06-03 19:04 | Progress Note ---
Provider Note Provider Note: Temp Pulse Resp BP Pulse Ox 98.1 F 74 16 100/66 95 06/01/18 22:12 06/01/18 22:12 06/02/18 07:01 06/02/18 07:00 06/02/18 07:01 Intake & Output 06/01/18 06/02/18 06/03/18 06:59 06:59 06:59 Intake Total 1000 Balance 1000 Weight 95.4 kg Patient seen and evaluated. He seems to be back at baseline. He does have an MRI done 2 days ago and at this point I see no need to repeat and so this has been canceled.
--- NOTE | 2018-06-03 19:08 | PDOC DISCHARGE SUMMARY ---
General - Admit/Disc Date/PCP Admission Date/Primary Care Provider: 06/02/18 00:38 GALA SPRING MD Discharge Date: 06/03/18 - Discharge Diagnosis (1) Glioblastoma multiforme of brain Is this a current diagnosis for this admission?: Yes (2) Hypotension Is this a current diagnosis for this admission?: Yes (3) Syncope and collapse Is this a current diagnosis for this admission?: Yes - Additional Information Resuscitation Status: Do Not Resuscitate Discharge Diet: Regular Discharge Activity: Activity As Tolerated Home Medications: No Home Medications 06/02/18 History of Present Illness History of Present Illness: KATI DESAI is a 57 year old male with known past medical history of brain tumor presents to the emergency department after passing out at home. States he was seated, denies chest pain, denies headache, blurred vision or shortness of breath. States this has never happened before. Patient was diagnosed with glioblastoma multiforme Hospital Course Hospital Course: Patient was monitored in hospital. MRI was not done as one had been recently done this week. Patient had no further symptomatology of his presenting complaints. After talking with the and with her approval a palliative care consult was done. It appears patient will be discharged to palliative care in the community. The understands that his condition is very serious and prognosis is very poor. Physical Exam Vital Signs: Temp Pulse Resp BP Pulse Ox 97.7 F 78 17 106/66 94 06/03/18 15:15 06/03/18 15:15 06/03/18 15:15 06/03/18 15:15 06/03/18 15:15 Intake & Output 06/02/18 06/03/18 06/04/18 06:59 06:59 06:59 Intake Total 1000 1000 480 Balance 1000 1000 480 Weight 95 kg General appearance: PRESENT: no acute distress, well-developed, well-nourished Head exam: PRESENT: normocephalic, other - Frontal craniotomy scar Eye exam: PRESENT: conjunctiva pink, EOMI, PERRLA. ABSENT: scleral icterus Ear exam: PRESENT: normal external ear exam Mouth exam: PRESENT: moist, tongue midline Neck exam: ABSENT: carotid bruit, JVD, lymphadenopathy, thyromegaly Respiratory exam: PRESENT: clear to auscultation dickson. ABSENT: rales, rhonchi, wheezes Cardiovascular exam: PRESENT: RRR. ABSENT: diastolic murmur, rubs, systolic murmur Pulses: PRESENT: normal dorsalis pedis pul Vascular exam: PRESENT: normal capillary refill GI/Abdominal exam: PRESENT: normal bowel sounds, soft. ABSENT: distended, guarding, mass, organolmegaly, rebound, tenderness Rectal exam: PRESENT: deferred Extremities exam: PRESENT: full ROM. ABSENT: calf tenderness, clubbing, pedal edema Neurological exam: PRESENT: alert, awake, oriented to person, oriented to situation. ABSENT: motor sensory deficit Psychiatric exam: PRESENT: appropriate affect, normal mood. ABSENT: homicidal ideation, suicidal ideation Skin exam: PRESENT: dry, intact, warm. ABSENT: cyanosis, rash Results Laboratory Results: 06/03/18 07:56 06/03/18 07:56 06/03/18 06/03/18 07:56 07:56 WBC 8.5 RBC 4.24 L Hgb 14.0 Hct 39.6 MCV 93 MCH 32.9 MCHC 35.3 RDW 14.1 H Plt Count 219 Sodium 145.3 H Potassium 4.2 Chloride 109 H Carbon Dioxide 25 Anion Gap 11 BUN 11 Creatinine 0.95 Est GFR ( Amer) > 60 Est GFR (Non-Af Amer) > 60 Glucose 98 Calcium 9.1 06/02/18 06/02/18 06/02/18 04:50 11:03 17:05 Troponin I < 0.012 < 0.012 < 0.012 Impressions: Chest X-Ray 06/01/18 22:24 IMPRESSION: No evidence of acute intrathoracic disease. Probable minimal fibrosis and/or atelectasis in the left lung base. Head CT 06/01/18 22:24 IMPRESSION: Findings suspicious for recurrent or residual mass in the region of the right basal ganglia with surrounding vasogenic edema resulting in mild sulcal and ventricular effacement. 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 Normal CTA of the neck. There are minimal atherosclerotic calcifications along the carotid bulbs bilaterally without significant stenosis. 2. Normal intracranial CTA. 3. Remote right frontal craniotomy with underlying encephalomalacia and findings suggestive of right frontal lobe vasogenic edema with attenuation of the right middle cerebral arteries over the right cerebral convexity. No enhancing mass lesion is identified within the right basal ganglia or right cerebral hemisphere. There is no evidence of stenosis as per the NASCET criteria. Chest/Abdomen CTA 06/02/18 00:33 IMPRESSION: 1. Normal CTA of the neck. There are minimal atherosclerotic calcifications along the carotid bulbs bilaterally without significant stenosis. 2. Normal intracranial CTA. 3. Remote right frontal craniotomy with underlying encephalomalacia and findings suggestive of right frontal lobe vasogenic edema with attenuation of the right middle cerebral arteries over the right cerebral convexity. No enhancing mass lesion is identified within the right basal ganglia or right cerebral hemisphere. There is no evidence of stenosis as per the NASCET criteria. Head CTA 06/02/18 00:33 IMPRESSION: 1. Normal CTA of the neck. There are minimal atherosclerotic calcifications along the carotid bulbs bilaterally without significant stenosis. 2. Normal intracranial CTA. 3. Remote right frontal craniotomy with underlying encephalomalacia and findings suggestive of right frontal lobe vasogenic edema with attenuation of the right middle cerebral arteries over the right cerebral convexity. No enhancing mass lesion is identified within the right basal ganglia or right cerebral hemisphere. There is no evidence of stenosis as per the NASCET criteria. Venous Doppler Study 06/03/18 00:00 IMPRESSION: NO EVIDENCE DVT OR SVT IN EITHER LEG. Qualifiers - * PATIENT BEING DISCHARGED WITH ANY OF THE FOLLOWING DIAGNOSIS: No Plan Time Spent: Less than 30 Minutes
== END 2018-06-03 15:53 | disposition home or self-care (01) ==
LOC: ER 21:53 → EH 06-02 00:38 → INTOOBSV 06-02 00:38 → EH 06-02 14:18 → 4N 06-02 17:48
PROVIDERS: ADMIT Family Medicine; ATTEND Family Medicine
DX: C71.9 Malignant neoplasm of brain, unspecified (principal); I95.9 Hypotension, unspecified; R55 Syncope and collapse; Z66 Do not resuscitate; R51 Headache; Z98.890 Other specified postprocedural states
CPT/HCPCS: 93005; 99285; 96360; 96361; 36415 ×3; 82553; 82550; 85025; 85027; 85610; 85730; 80048; 80053; 84484 ×2; 83880; 93970; 71045; 70450; 70496; 70498; 71275; 93010; 97530; 97116; 97163; 97535; 97167; G0378 ×3; J1650 ×2; J3490; J7030 ×2